=== PATIENT | female | born 2000 | race Two or more races ===

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

== ENCOUNTER 2019-01-13 07:31 | Emergency (ER) | payer MEDICAID ==
[~2019-01-13] VITALS: Ht 157.5 cm; Wt 62.6 kg
[2019-01-13 08:27] LABS: Basophils # (auto) 0 uL; Basophils % (auto) 0.2 % (0.0-2.0); Eosinophils # (auto) 0.1 uL; Eosinophils % (auto) 0.5 % (0.0-7.0); Hematocrit 39.8 % (36.0-46.0); Hemoglobin 13.5 g/dL (12.2-16.2); Lymphocytes # (auto) 1.9 uL; Mean Corpuscular Hemoglobin 30.6 pg (28.0-32.0); Mean Corpuscular Hgb Conc. 33.8 g/dL (32.0-36.0); Mean Corpuscular Volume 90.3 fL (80.0-100.0); Monocytes # (auto) 0.5 uL; Monocytes % (auto) 4.4 % (0.0-12.0); Neutrophils # (auto) 8.9 uL; Neutrophils % (auto) 77.9 % (37.0-80.0); Nucleated Red Blood Cells % 0.1 %; Platelet Count (auto) 237 10^3/uL (140-450); Red Blood Cells 4.41 10^6/uL (4.0-5.20); Red Cell Distribution Width 13.9 % (11.8-14.3); White Blood Cell 11.4 10^3/uL (4.4-10.8)
[2019-01-13 08:44] LABS: Albumin 3.1 g/dL (3.4-5.0); Potassium 3.7 mmol/L (3.5-5.1)
[2019-01-13 08:48] LABS: BUN/Creatinine Ratio 6.1; Bilirubin, Total 0.2 mg/dL (0.2-1.0); Total Protein 7.5 g/dL (6.4-8.2)
[2019-01-13] MEDS ORDERED: SODIUM CHLORIDE 0.9% 1,000 ML IV ONE ×2 (08:58)
[2019-01-13] MEDS ORDERED: PROMETHAZINE HCL 25 MG/ML 1ML IV ONE (10:00)
[2019-01-13 12:25] VITALS: BP 107/69
== END 2019-01-13 13:44 | disposition home or self-care (01) ==
LOC: ER 07:31
DX: O99.612 Diseases of the digestive system complicating pregnancy, second trimester (principal); K29.70 Gastritis, unspecified, without bleeding; Z3A.26 26 weeks gestation of pregnancy
CPT/HCPCS: 36415; 80053; 85025; 96361; 96374; 99283; J2550; J7030

== ENCOUNTER 2024-10-06 06:45 | Inpatient (IN) | payer MEDICAID, OTHER ==
[~2024-10-06] VITALS: Ht 157.5 cm; Wt 68.5 kg
[~2024-10-06 06:45] MED LIST: PREN27TA7 PO
--- NOTE | 2024-10-06 07:27 | DVHHP ---
ADMIT DATE: 10/06/2024 CHIEF COMPLAINT: Labor pain. HISTORY OF PRESENT ILLNESS: The patient is a 24-year-old 2, para 1 with EDC 10/20/2024. Estimated gestational age of 38+ weeks, admitted for labor. The patient was noted to be in active labor. No rupture of membrane or vaginal bleeding. PAST MEDICAL HISTORY: None. PAST SURGICAL HISTORY: None. SOCIAL HISTORY: None. FAMILY HISTORY: None. OBSTETRIC AND GYNECOLOGIC HISTORY: One vaginal delivery. REVIEW OF SYSTEMS: Consistent with HPI. PHYSICAL EXAMINATION: VITAL SIGNS: Stable, afebrile. HEENT: Within normal limits. CARDIOVASCULAR: Regular rate and rhythm. LUNGS: Clear to auscultation. BREASTS: Symmetrical. No masses. ABDOMEN: Gravid ____ . PELVIC: 6 cm, 100%, -1. EXTREMITIES: No clubbing, cyanosis or edema. IMPRESSION: Intrauterine at 38+ weeks, in labor. PLAN: Expectant vaginal delivery. Informed consent obtained. DO JULIAN Spencer TID: [id number] RECEIPT: [id number]
[2024-10-06] MEDS ORDERED: LIDOCAINE 2%HCL (LOCAL ANESTH.) INJ 20ML MDV IJ PRN (07:30)
[2024-10-06] MEDS: LACTATED RINGER'S 1,000 ML IV SCH (07:33)
[2024-10-06] MEDS ORDERED: NALOXONE HCL 0.4 MG/ML VIAL IV ONE (07:45)
[2024-10-06] MEDS ORDERED: ePHEDrine SULFATE 50 MG/ML AMP IV ONE (07:45)
[2024-10-06 08:09] LABS: Urine Bacteria None Seen /hpf (None Seen)
[2024-10-06 08:10] LABS: Basophils # (auto) 0 10 ^3/uL (0-0.2); Basophils % (auto) 0.3 % (0.0-2.0); Eosinophils # (auto) 0 10 ^3/uL (0-0.8); Eosinophils % (auto) 0.1 % (0.0-7.0); Hemoglobin 13.5 g/dL (12.2-16.2); Lymphocytes # (auto) 2.4 10 ^3/uL (0.4-5.4); Lymphocytes % (auto) 26.2 % (10.0-50.0); Mean Corpuscular Hemoglobin 30.5 pg (28.0-32.0); Mean Corpuscular Hgb Conc. 34.6 g/dL (32.0-36.0); Mean Corpuscular Volume 88.2 fL (80.0-100.0); Monocytes # (auto) 0.4 10 ^3/uL (0-1.3); Monocytes % (auto) 4.6 % (0.0-12.0); Neutrophils # (auto) 6.4 10 ^3/uL (1.6-8.6); Neutrophils % (auto) 68.8 % (37.0-80.0); Platelet Count (auto) 176 10^3/uL (140-450); Red Blood Cells 4.41 10^6/uL (4.0-5.20); Red Cell Distribution Width 14.3 % (11.8-14.3); White Blood Cell 9.3 10^3/uL (4.4-10.8)
[2024-10-06 08:14] LABS: INR 0.93 (0.9-1.15); Partial Thromboplastin Time 28.7 SEC (24.5-34.5); Prothrombin Time 9.9 sec (9.3-11.8)
[2024-10-06 08:21] LABS: Alanine Aminotransferase 11 U/L (7-40); Albumin 3.5 g/dL (3.2-4.8); Anion Gap 8 (5-15); Aspartate Aminotransferase 15 U/L (13-40); BUN/Creatinine Ratio 13.8 (10.0-20.0); Bilirubin, Total 0.4 mg/dL (0.2-1.0); Calcium 9.4 mg/dL (8.7-10.4); Carbon Dioxide 22 mmol/L (20-31); Glucose 88 mg/dL (74-106); Potassium 3.6 mmol/L (3.5-5.1); Sodium 137 mmol/L (136-145); Total Protein 6.1 g/dL (5.7-8.2)
[2024-10-06 08:24] LABS: Alkaline Phosphatase 251 U/L (46-116); Blood Urea Nitrogen 8 mg/dL (9-23); Chloride 107 mmol/L (98-107)
[2024-10-06 08:26] LABS: Urine Blood 2+ /uL (Negative); Urine Clarity Clear (Clear); Urine Color Light-Yellow (Yellow); Urine Mucus FEW (None Seen); Urine Protein, UAD TRACE (Negative); Urine Specific Gravity 1.019 (1.001-1.035); Urine Urobilinogen Normal (Negative); Urine WBC 9 /hpf (0 - 5); Urine pH 6.5 (5.0-9.0)
[2024-10-06] MEDS: LACTATED RINGER'S 1,000 ML IV ONE (08:26)
[2024-10-06] MEDS: ROPIVACAINE HCL 200 ML ONE (08:27)
[2024-10-06] MEDS: DERMOPLAST 60ML BOTTLE TOP PRN (08:51)
[2024-10-06 08:52] LABS: Amphetamine Screen, Urine Neg (NEGATIVE); Barbiturate Scree,Urine Neg (NEGATIVE); Benzodiazephine Screen, Urine Neg (NEGATIVE); Cannabinoid Screen, Urine Neg (NEGATIVE); Cocaine Screen, Urine Neg (NEGATIVE); Opiate Scree,Urine Neg (NEGATIVE); Phencyclidine Screen, Urine Neg (NEGATIVE)
[2024-10-06] MEDS: PHISODERM TOP SOLN 240ML BTL TOP PRN (08:52)
[2024-10-06] MEDS: WITCH HAZEL-GLYCERIN PAD TOP PRN (08:52)
--- NOTE | 2024-10-06 12:07 | DVHPN2 ---
Chief Complaints Patient reports: No new complaints Nursing reports: No new complaints Objective Medications Current Medications Medications (Trade) Dose Ordered Sig/Gus Route PRN Reason Start Time Stop Time Status Last Admin Benzocaine (Dermoplast) 1 applic PRN PRN TOP PERINEAL AREA DISCOMFORT 10/06/24 07:30 10/06/24 08:51 Lactated Ringer's 1,000 ml @ 125 mls/hr Q8H IV 10/06/24 07:30 10/06/24 07:33 Lidocaine HCl (Xylocaine) 40 ml ONCE PRN IJ PERINEAL AREA DISCOMFORT 10/06/24 07:30 Sodium Lauryl Sulfate (Phisoderm) 240 ml PRN PRN TOP PERINEAL AREA DISCOMFORT 10/06/24 07:30 10/06/24 08:52 Witch Gay (Tucks) 1 pad PRN PRN TOP PERINEAL AREA DISCOMFORT 10/06/24 07:30 10/06/24 08:52 Others VE 10 CM/ Studies Laboratory Tests 10/06/24 07:45 Test 10/06/24 07:45 Range/Units Serum Glucose 88 74-106 mg/dL Ass/Plan Assessment LABOR Plan PT IS PUSHING WILLIAN LIZ DO Oct 06, 2024 12:07
[2024-10-06] MEDS: METHYLERGONOVINE MALEATE 0.2 MG/ML AMP IM ONE (12:20)
[2024-10-06] MEDS: LACT. RINGERS/OXYTOCIN 20UNITS 500 ML IV ONE ×2 (14:01)
[2024-10-06] MEDS: METHYLERGONOVINE MALEATE 0.2 MG/ML AMP IM PRN (14:02)
[2024-10-06 14:38] VITALS: BP 132/66; PULSE 87; RESP 18; TEMP 98.6
[2024-10-06] MEDS: IBUPROFEN 600 MG TAB PO PRN (16:12)
[2024-10-06 19:00] VITALS: BP 118/64; PULSE 98; RESP 16; TEMP 98.1; O2SAT 97
[2024-10-06] MEDS: ACETAMINOPHEN 325 MG TAB PO PRN (21:09)
[2024-10-06 23:00] VITALS: BP 117/67; PULSE 97; RESP 16; TEMP 99; O2SAT 97
--- NOTE | 2024-10-07 02:41 | DVHPN2 ---
Chief Complaints Patient reports: No new complaints (Coping well. Denies any sx. Ambulates and voids freely. Breastfeeds well. Bonding well with baby. Denies blues. ) Nursing reports: No new complaints Objective Vitals Vital Signs Date Time Temp Pulse Resp B/P (MAP) Pulse Ox O2 Delivery O2 Flow Rate FiO2 10/06/24 23:00 99.0 97 16 117/67 (84) 97 99.0 10/06/24 19:00 Room Air Medications Current Medications Medications (Trade) Dose Ordered Sig/Gus Route PRN Reason Start Time Stop Time Status Last Admin Acetaminophen (Tylenol Tablet) 650 mg Q4HP PRN PO MILD PAIN (1-3 PAIN SCALE) 10/06/24 13:15 10/06/24 21:09 Benzocaine (Dermoplast) 1 applic PRN PRN TOP PERINEAL AREA DISCOMFORT 10/06/24 07:30 10/06/24 08:51 Ibuprofen (Motrin Tablet) 600 mg Q6HP PRN PO MODERATE PAIN (4-6 PAIN SCALE) 10/06/24 13:15 10/06/24 23:08 Sodium Lauryl Sulfate (Phisoderm) 240 ml PRN PRN TOP PERINEAL AREA DISCOMFORT 10/06/24 07:30 10/06/24 08:52 Witch Gay (Tucks) 1 pad PRN PRN TOP PERINEAL AREA DISCOMFORT 10/06/24 07:30 10/06/24 08:52 General: Normal Lungs: Normal, Normal breath sounds, Lungs clear Cardiovascular: Normal, Regular rate and rhythm Abdominal: Normal (Fundus firm, 1fb below umbilicus, non tender) Musculoskeletal: Normal Extremities: Normal (Adeline's neg) Skin: Normal Others Breasts soft, nipples intact Perineum without edema. Lochia minimal, no odor Studies Laboratory Tests 10/06/24 07:45 Test 10/06/24 07:45 Range/Units Serum Glucose 88 74-106 mg/dL Ass/Plan Assessment 1st PP day Desires to go home Plan D/c home with instructions RTC 2 weeks and PRN JUAN PABLO LAI CNM Oct 07, 2024 02:41
[2024-10-07 03:00] VITALS: BP 110/62; PULSE 77; RESP 16; TEMP 98.8; O2SAT 98
[2024-10-07 07:00] VITALS: BP 116/70; PULSE 90; RESP 16; TEMP 98.3; O2SAT 97
[2024-10-07 08:06] LABS: RPR Non Reactive (Non Reactive)
--- NOTE | 2024-10-07 08:11 | LDN2 ---
Labor and Delivery Note Date 10/07/24 Age 24 2 Para 2 EDC 12-30 EGA 38wks Diagnosis labor Vaginal Delivery: VTX Vacuum Assisted: No Placenta: Spontaneous Sex: Female Apgars 8-9 Nuchal Cord Transected: No Amniotic Fluid: Clear Anesthesia epidural Episiotomy: No Extension: Yes (2nd deg perineal lac) Repaired with 2-0 chromic EBL 300ml Labs Laboratory Tests 10/06/24 07:45: Hepatitis B Surface Antigen Negative, Rubella Antibody Equivocal 10/08/18 09:34: HIV (1&2) Antibody Negative Blood Bank 10/06/24 07:45: Blood Type O POSITIVE Complications none Conditions stable Comments/Significant Med Harriett spec exam no cxal lac WILLIAN LIZ DO Oct 07, 2024 08:11
--- NOTE | 2024-10-07 08:12 | DVHDS2 ---
Obstetrics Discharge Summary Obstetrics Discharge Summary Date of Admission: Oct 06, 2024 Date of Discharge: Oct 07, 2024 Reason For Admission: Onset of Labor Procedures: NST Intrapartum Procedures: Spontaneous vaginal deliv Procedures: None Operative Complicat: Laceration (Perineal) Discharge Diagnosis: Term -Delivered Discharge Information: Activity (Other), Diet (Routine), Medications (None), Instructions (Routine), Discharge to (Home), Discarge date (10-07) WILLIAN LIZ DO Oct 07, 2024 08:12
[2024-10-07 11:00] VITALS: PULSE 88; RESP 16; TEMP 98.3; O2SAT 98
[2024-10-07 15:30] VITALS: BP 136/91; PULSE 90; RESP 16; TEMP 98.4; O2SAT 100
== END 2024-10-07 17:35 | disposition home or self-care (01) | DRG 560 ==
LOC: LDRP 06:45 → UNDOADMOB 06:45 → OBSVTOIN 06:45 → INTOOBSV 06:45 → OBSVTOIN 07:15 → LDRP 07:15
PROVIDERS: ADMIT Obstetrics & Gynecology; ATTEND Obstetrics & Gynecology
PROC: 10E0XZZ Delivery of Products of Conception, External Approach (ICD-10-PCS; principal; 2024-10-06)
PROC: 3E0R3BZ Introduction of Anesthetic Agent into Spinal Canal, Percutaneous Approach (ICD-10-PCS; 2024-10-06)
PROC: 00HU33Z Insertion of Infusion Device into Spinal Canal, Percutaneous Approach (ICD-10-PCS; 2024-10-06)
PROC: 0KQM0ZZ Repair Perineum Muscle, Open Approach (ICD-10-PCS; 2024-10-06)
DX: O70.1 Second degree perineal laceration during delivery (principal); Z37.0 Single live birth; Z3A.38 38 weeks gestation of pregnancy
CPT/HCPCS: 36415; 59025; 59409; 62282; 80053; 80307; 81001; 81002; 85025; 85610; 85730; 86592; 86762; 86780; 86803; 86850; 86900; 86901; 87340; 94760; 96360; 96361; 96365; 96366; 96372; G0378; J2590